=== PATIENT | female | born 1955 | race Caucasian/White ===

== ENCOUNTER 2018-09-13 09:56 | Emergency (ER) | payer BC ==
[2018-09-13] MEDS ORDERED: Sodium Chloride 0.9% 10 ML Syringe FLUSH PRN (10:14)
[2018-09-13] MEDS ORDERED: GI Cocktail Oral Solution 30 ML PO ONE (10:15)
[2018-09-13] MEDS ORDERED: Aspirin 81 MG Tab.Chew PO ONE (10:15)
[2018-09-13 10:16] VITALS: BP 161/68
--- NOTE | 2018-09-13 10:20 | EDM.PDOC ---
ED HPI GENERAL MEDICAL PROBLEM - General Chief Complaint: Chest Pain Stated Complaint: CHEST PAIN Time Seen by Provider: 09/13/18 10:05 Source of Information: Reports: Patient History Limitations: Reports: No Limitations - History of Present Illness INITIAL COMMENTS - FREE TEXT/NARRATIVE: She comes emergency department today with complaints of chest pain. She points to the epigastric region when she is referring to her chest pain. Approximately 45 minutes prior to arrival the patient developed sharp shooting stabbing chest pain in the epigastric region. It did radiate up into her neck. Showed no shortness of breath. No diaphoresis. No weakness dizziness lightheadedness. No palpitations. She denies any recent fever chills or body aches. No abdominal pain nausea or vomiting. No hematuria dysuria or urinary frequency. No flank pain. The pain does not radiate into her back. She does not smoke. She has no history of cancer. No recent long extensive travel. Chest Pain Score (Numeric/FACES): 5 - Related Data Allergies Allergy/AdvReac Type Severity Reaction Status Date / Time levofloxacin [From Levaquin] Allergy Shortness Verified 09/13/18 10:29 of Breath Home Meds: Home Meds Lisinopril [Prinivil] 20 mg PO DAILY 05/09/14 [History] Simvastatin 20 mg PO DAILY 05/09/14 [History] Hydrochlorothiazide 25 mg PO DAILY 10/20/14 [History] hydrOXYzine Pamoate [Hydroxyzine Pamoate] 25 mg PO DAILY 10/20/14 [History] ALPRAZolam [Alprazolam] 0.5 tab PO BEDTIME PRN 04/03/15 [History] Calcium Carbonate [Calcium] 500 mg PO DAILY 04/03/15 [History] Multivitamin with Minerals [Multivitamins with Minerals] 1 each PO DAILY [History] Cyclobenzaprine [Flexeril] 5 mg PO PRN 09/13/18 [History] DULoxetine HCl [Cymbalta] 60 mg PO DAILY 09/13/18 [History] Potassium Chloride 20 meq PO DAILY 09/13/18 [History] Past Medical History Other HEENT History: wears glasses Other Genitourinary History: chronic kidney disease (CKD) cystostomy 1997 Other Musculoskeletal History: torn ACL - Past Surgical History Other HEENT Surgeries/Procedures: right upper cadavar bone Other GI Surgeries/Procedures: inguina lhernia 1977 Other Musculoskeletal Surgeries/Procedures:: feet surgeries ED ROS GENERAL - Review of Systems Review Of Systems: ROS reveals no pertinent complaints other than HPI. ED EXAM, GENERAL - Physical Exam Exam: See Below Exam Limited By: No Limitations General Appearance: Alert, WD/WN, Anxious Eye Exam: Bilateral Eye: Normal Inspection Ears: Normal External Exam Nose: Normal Inspection, Normal Mucosa Throat/Mouth: Normal Inspection Head: Atraumatic, Normocephalic Neck: Normal Inspection, Supple Respiratory/Chest: No Respiratory Distress, Lungs Clear, Normal Breath Sounds, No Accessory Muscle Use, Chest Non-Tender Cardiovascular: Normal Peripheral Pulses, Regular Rate, Rhythm, No JVD Peripheral Pulses: 2+: Radial (L), Radial (R), Posterior Tibial (L), Posterior Tibial (R), Dorsalis Pedis (L), Dorsalis Pedis (R) GI/Abdominal: Normal Bowel Sounds, Soft, Tender (Tenderness to the epigastric region without rebound guarding or distention. Negative Richardson sign.) Back Exam: Normal Inspection Extremities: Normal Inspection, Normal Range of Motion, Normal Capillary Refill Neurological: Alert, Oriented, Normal Cognition, No Motor/Sensory Deficits Psychiatric: Normal Affect, Normal Mood Skin Exam: Warm, Dry, Intact, Normal Color, No Rash EKG INTERPRETATION EKG Date: 09/13/18 Time: 10:01 Rhythm: NSR Rate (Beats/Min): 71 Brady: Normal P-Wave: Present QRS: Normal ST-T: Normal QT: Normal Comparison: NA - No Prior EKG Course - Vital Signs Last Recorded V/S: Last Vital Signs Temp 37.8 C 09/13/18 10:13 Pulse 72 09/13/18 10:13 Resp 16 09/13/18 10:13 BP 161/68 H 09/13/18 10:13 Pulse Ox 96 09/13/18 10:13 - Orders/Labs/Meds Orders: Active Orders 24 hr Category Date Time Status EKG 12 Lead [EKG Documentation Completion] [RC] URGENT Care 09/13/18 10:15 Active Peripheral IV Care [RC] . DIRECTED Care 09/13/18 10:15 Active Sodium Chloride 0.9% [Saline Flush] Med 09/13/18 10:14 Active 10 ml FLUSH ASDIRECTED PRN Peripheral IV Insertion Adult [OM.PC] Stat Oth 09/13/18 10:15 Ordered Medication Orders Sodium Chloride (Saline Flush) 10 ml FLUSH ASDIRECTED PRN PRN Reason: Keep Vein Open Last Admin: 09/13/18 10:30 Dose: 10 ml Labs: Laboratory Tests 09/13/18 09/13/18 09/13/18 Range/Units 10:09 10:09 10:33 WBC 4.5 L (5.0-10.0) 10^3/uL RBC 4.43 (4.2-5.4) 10^6/uL Hgb 13.7 (12.0-16.0) g/dL Hct 40.3 (37.0-47.0) % MCV 91.0 (80-100) fL MCH 30.9 (27.0-34.0) pg MCHC 34.0 (33.0-35.0) g/dL Plt Count 266 (150-450) 10^3/uL Neut % (Auto) 53.6 (42.2-75.2) % Lymph % (Auto) 35.0 (20.5-50.1) % Kent % (Auto) 8.4 H (2-8) % Eos % (Auto) 2.6 (1.0-3.0) % Baso % (Auto) 0.4 (0.0-1.0) % Sodium (135-145) mmol/L Potassium Not Reportable Chloride Not Reportable Carbon Dioxide Not Reportable Anion Gap Not Reportable BUN Not Reportable Creatinine Not Reportable Est Cr Clr Drug Dosing Not Reportable Estimated GFR (MDRD) Not Reportable BUN/Creatinine Ratio Not Reportable Glucose Not Reportable Calcium Not Reportable Total Bilirubin Not Reportable AST Not Reportable ALT Not Reportable Alkaline Phosphatase Not Reportable Troponin I < 0.02 (0.00-0.02) ng/ml Total Protein Not Reportable Albumin Not Reportable Globulin Not Reportable Albumin/Globulin Ratio Not Reportable Urine Color Yellow (YELLOW) Urine Appearance Clear (CLEAR) Urine pH 8.5 (5.0-9.0) Ur Specific [place] 1.020 (1.005-1.030) Urine Protein 100 H (NEGATIVE) Urine Glucose (UA) Negative (NEGATIVE) Urine Ketones Negative (NEGATIVE) Urine Occult Blood Trace-intact H (NEGATIVE) Urine Nitrite Negative (NEGATIVE) Urine Bilirubin Negative (NEGATIVE) Urine Urobilinogen 0.2 (0.2-1.0) mg/dL Ur Leukocyte Esterase Negative (NEGATIVE) Urine RBC 20-30 H /HPF Urine WBC Not seen (0-5/HPF) /HPF Ur Epithelial Cells Rare /HPF Amorphous Sediment Few (0/HPF) /HPF Urine Bacteria Few (0-FEW/HPF) /HPF Hyaline Casts Few H /LPF Urine Mucus Few H /LPF 09/13/18 Range/Units 13:35 WBC (5.0-10.0) 10^3/uL RBC (4.2-5.4) 10^6/uL Hgb (12.0-16.0) g/dL Hct (37.0-47.0) % MCV (80-100) fL MCH (27.0-34.0) pg MCHC (33.0-35.0) g/dL Plt Count (150-450) 10^3/uL Neut % (Auto) (42.2-75.2) % Lymph % (Auto) (20.5-50.1) % Kent % (Auto) (2-8) % Eos % (Auto) (1.0-3.0) % Baso % (Auto) (0.0-1.0) % Sodium (135-145) mmol/L Potassium Chloride Carbon Dioxide Anion Gap BUN Creatinine Est Cr Clr Drug Dosing Estimated GFR (MDRD) BUN/Creatinine Ratio Glucose Calcium Total Bilirubin AST ALT Alkaline Phosphatase Troponin I < 0.02 (0.00-0.02) ng/ml Total Protein Albumin Globulin Albumin/Globulin Ratio Urine Color (YELLOW) Urine Appearance (CLEAR) Urine pH (5.0-9.0) Ur Specific [place] (1.005-1.030) Urine Protein (NEGATIVE) Urine Glucose (UA) (NEGATIVE) Urine Ketones (NEGATIVE) Urine Occult Blood (NEGATIVE) Urine Nitrite (NEGATIVE) Urine Bilirubin (NEGATIVE) Urine Urobilinogen (0.2-1.0) mg/dL Ur Leukocyte Esterase (NEGATIVE) Urine RBC /HPF Urine WBC (0-5/HPF) /HPF Ur Epithelial Cells /HPF Amorphous Sediment (0/HPF) /HPF Urine Bacteria (0-FEW/HPF) /HPF Hyaline Casts /LPF Urine Mucus /LPF Meds: Medications Generic Name Dose Route Start Last Admin Trade Name Freq PRN Reason Stop Dose Admin Sodium Chloride 10 ml 09/13/18 10:14 09/13/18 10:30 Saline Flush FLUSH 10 ml ASDIRECTED PRN Administration Keep Vein Open Discontinued Medications Generic Name Dose Route Start Last Admin Trade Name Helio PRN Reason Stop Dose Admin Al Hydroxide/Mg Hydroxide 30 ml 09/13/18 10:15 09/13/18 10:29 Gi Cocktail PO 09/13/18 10:16 30 ml ONETIME ONE Administration Aspirin 324 mg 09/13/18 10:15 09/13/18 10:29 Aspirin PO 09/13/18 10:16 324 mg ONETIME ONE Administration Famotidine 20 mg 09/13/18 11:53 09/13/18 11:59 Pepcid IVPUSH 09/13/18 11:54 20 mg ONETIME ONE Administration - Re-Assessments/Exams Free Text/Narrative Re-Assessment/Exam: 09/13/18 10:21 GI Cocktail Aspirin PO. 09/13/18 10:56 At this time her subjective pain is completely resolved. Her troponin is normal. She feels much better and back to normal following the GI cocktail. Reexamination of the abdomen still shows some mild tenderness in the epigastric region. Negative Richardson sign the rest of the abdomen is negative and nontender. Still waiting on lab results. 09/13/18 12:26 Our chemistry analyzer is down for the day. BUNs 16, and a 142, K3.9, CH 101, CO2 34, glucose 94, creatinine 1.1, CA 9.5, anion gap 7, albumin 4, alkaline phosphatase 59, AST 27 AST 28, total bilirubin 0.4, protein 7.6, GFR 50. She still has some generalized tenderness in the epigastric region. We will repeat a troponin at 4 hours and she presented with chest pain shortly after the development of it and a normal troponin initially. She was given 20 mg of famotidine IV. 09/13/18 14:18 Repeat troponin negative. she has had a PUD in the past and has been off omeprazole for quite some time. I wonder if this is not a return of the issue. Other considerations in the future would be a gallbladder or EGD evaluation although not indicated at this time. We will send home with Carafate and omeprazole and have recheck. The patient is comfortable with this plan and her questions answered. Departure - Departure Time of Disposition: 14:16 Disposition: Home, Self-Care 01 Clinical Impression: Epigastric pain Instructions: Abdominal Pain, Adult, [id number] Forms: ED Department Discharge Additional Instructions: Carafate, 1 tablet 4 times a day. 1/2 hour before meals and bedtime. RX #120. Omeprazole, 1 tablet daily for the next 28 days. RX given. No spicy or rich foods. Return to the ED if new or worsening symptoms Follow up with PCP in 1 week if not improving sooner if worse and consider further testing such as gallbladder. - My Orders Last 24 Hours: My Active Orders 09/13/18 10:14 Sodium Chloride 0.9% [Saline Flush] 10 ml FLUSH ASDIRECTED PRN 09/13/18 10:15 EKG 12 Lead [EKG Documentation Completion] [RC] URGENT Peripheral IV Care [RC] . DIRECTED Peripheral IV Insertion Adult [OM.PC] Stat - Assessment/Plan Last 24 Hours: My Active Orders 09/13/18 10:14 Sodium Chloride 0.9% [Saline Flush] 10 ml FLUSH ASDIRECTED PRN 09/13/18 10:15 EKG 12 Lead [EKG Documentation Completion] [RC] URGENT Peripheral IV Care [RC] . DIRECTED Peripheral IV Insertion Adult [OM.PC] Stat Assessment:: Epigastric pain, ?GERD None cardiac chest pain reported. Plan: Carafate, 1 tablet 4 times a day. 1/2 hour before meals and bedtime. RX #120. Omeprazole, 1 tablet daily for the next 28 days. RX given. No spicy or rich foods. Return to the ED if new or worsening symptoms Follow up with PCP in 1 week if not improving sooner if worse and consider further testing such as gallbladder.
--- NOTE | 2018-09-13 11:04 | CR ---
Clinical history: 63-year-old female chest pain. Interpretation: PA lateral chest films confirm normal cardiac size and configuration. Left-sided aortic arch. No cephalization of vascular flow, signs of alveolar edema or dependent pleural fluid accumulation. No lung mass, hilar lymphadenopathy or focal lobar pneumonia. Mild scoliosis. Evidence of chronic disc disease at thoracolumbar juncture i.e. interspace narrowing, endplate sclerosis, marginal spondylosis. No atelectasis/collapse. No pneumothorax. CONCLUSION: No acute new cardiopulmonary abnormality since comparison film of 29 November 2009.
[2018-09-13] MEDS ORDERED: Famotidine 20 MG/2 ML SDV IVPUSH ONE (11:53)
== END 2018-09-13 14:27 | disposition home or self-care (01) ==
LOC: DL.ED 09:56
DX: R10.13 Epigastric pain (principal); N18.9 Chronic kidney disease, unspecified; Z88.1 Allergy status to other antibiotic agents; Z79.899 Other long term (current) drug therapy
CPT/HCPCS: 36415; 71046; 80053; 81001; 84484; 85025; 93005; 96374; 99285; A9270; J3490

== ENCOUNTER 2018-11-08 05:19 | Day surgery (SDC) | payer BC ==
[2018-11-08] MEDS ORDERED: Midazolam 1 MG/ML 2 ML SDV IV ONE ×3 (05:20→06:35)
[2018-11-08] MEDS ORDERED: fentaNYL 100 MCG/2 ML SDV IV ONE ×3 (05:20→06:33)
[2018-11-08] MEDS ORDERED: Midazolam 1 MG/ML 2 ML SDV ONE (05:55)
[2018-11-08] MEDS ORDERED: fentaNYL 100 MCG/2 ML SDV ONE (05:55)
[2018-11-08] MEDS ORDERED: Dextrose 5%-0.45% NaCl 1,000 ML IV SCH (06:00)
[2018-11-08] MEDS ORDERED: Sodium Chloride 0.9% 10 ML Syringe FLUSH PRN (06:00)
[2018-11-08 07:48] VITALS: PULSE 58
[2018-11-08 08:57] VITALS: BP 134/65
--- NOTE | 2018-11-08 12:56 | OR ---
DATE: 11/08/2018 PROCEDURE PERFORMED: Esophagogastroduodenoscopy, narrowband imaging, magnification views, and biopsies. INSTRUMENT USED: [id number] Olympus video panendoscope. PREMEDICATIONS: No oral or topical anesthesia used. Fentanyl 100 mcg intravenous, Versed 2 mg intravenous. Nasal O2 cannula. The procedure was done under pulse oximetry, BP recording, and cardiac sonographer. INDICATION: The patient with persistent dyspepsia, upper abdominal pain, and heartburn, unexplained and not responsive to medical measures. Positive family history for gastric cancer. Esophagogastroduodenoscopy is performed for detection of any active erosive lesions, Lipscomb esophagus and/or malignancy also under consideration, H. pylori status to be determined, endoscopic hemostasis therapy if needed. DESCRIPTION OF PROCEDURE: The scope was passed with ease. Adequate visualization of the esophagus was made from proximal to distal areas. No upper esophageal lesions identified. No distal esophageal stricture. No uphill or downhill esophageal varices. No Tisha-Oseguera tear. No evidence of erosive esophagitis by Steele criteria. No esophageal polyp or tumor mass identified. Z-line was seen at around 40 cm distal to the oral verge, configuration consistent with grade 1 by ZAP classification. No proximal gastric varices noted. Gastric fundus examination by retroflexion showed no polypoid lesions. No gastric ulcer, malignant mass, or vascular ectasia identified. Duodenal bulb showed no ulcer. Visualized second part of the duodenum was unremarkable. Multiple pinch biopsies were taken from the gastric antrum and proximal body and sent for PyloriTek test for H. pylori and histopathology. In the proximal gastric body, diminutive benign-appearing submucosal polypoid area was noted. NBI including magnification views was obtained. Photographs were taken. Numerous pinch biopsies were taken and sent for histopathology. No bleeding was noted from any of the visualized areas at the completion of examination. Photographs were taken of the duodenal bulb, gastric antrum, fundus, and distal esophagus. IMPRESSION: Diminutive gastric body submucosal lesion. The patient tolerated the procedure well. [facility] /[id number]
== END 2018-11-08 08:55 | disposition home or self-care (01) ==
LOC: DL.ENDO 05:19
PROVIDERS: ATTEND Internal Medicine Gastroenterology
DX: K29.50 Unspecified chronic gastritis without bleeding (principal); I12.9 Hypertensive chronic kidney disease with stage 1 through stage 4 chronic kidney disease, or unspecified chronic kidney disease; N18.9 Chronic kidney disease, unspecified; E78.5 Hyperlipidemia, unspecified; F41.1 Generalized anxiety disorder; F32.9 Major depressive disorder, single episode, unspecified; Z88.1 Allergy status to other antibiotic agents; Z87.11 Personal history of peptic ulcer disease; Z80.0 Family history of malignant neoplasm of digestive organs
CPT/HCPCS: 43239; 87077; J2250; J3010; J7042